=== PATIENT | female | born 1970 | race Caucasian/White ===

== ENCOUNTER → 2021-08-07 | Day surgery (SDC) | payer OTHER ==
[~2021-08-07] VITALS: Ht 165.1 cm; Wt 129.3 kg
[~2021-08-07] MED LIST: B-121000 MCG PO; D3 DOTS50 MCG PO; ESTRACE1 MG PO; MAG-OXIDE 400M400 MG PO; RYBELSUS14 MG PO; SYNTHROID100 MCG PO; WELLBUTRIN SR150 MG PO
== END | disposition home or self-care (01) ==
LOC: FAS 07:11
DX: Z12.11 Encounter for screening for malignant neoplasm of colon (principal); K62.1 Rectal polyp; K57.30 Diverticulosis of large intestine without perforation or abscess without bleeding; K64.8 Other hemorrhoids; E03.9 Hypothyroidism, unspecified; Z90.710 Acquired absence of both cervix and uterus; Z83.71 Family history of colonic polyps; Z90.721 Acquired absence of ovaries, unilateral; Z20.822 Contact with and (suspected) exposure to COVID-19
CPT/HCPCS: J2704; J7120

== ENCOUNTER → 2021-09-25 | Day surgery (SDC) | payer OTHER ==
[~2021-09-25] VITALS: Ht 165.1 cm; Wt 129.3 kg
[~2021-09-25] MED LIST changes: +LOSARTAN POTASS25 MG PO; +OXY-IR 5MG5 MG PO
[2021-09-25 07:38] LABS: BUN/CREAT RATIO (CALC) 17.9 RATIO; CREATININE 0.56 mg/dL (0.51-0.95); POTASSIUM 3.6 mmol/L (3.5-5.1)
== END | disposition home or self-care (01) ==
LOC: FAS 06:39
PROVIDERS: Anesthesiology
DX: D17.9 Benign lipomatous neoplasm, unspecified (principal); K57.90 Diverticulosis of intestine, part unspecified, without perforation or abscess without bleeding; K64.8 Other hemorrhoids; Z91.89 Other specified personal risk factors, not elsewhere classified
CPT/HCPCS: 36415; 80048; 93005; J1100; J2250; J2704; J3010; J7120